=== PATIENT | male | born 1970 | race Caucasian/White ===

== ENCOUNTER 2018-12-27 17:41 | Emergency (ER) | payer MEDICAID ==
[~2018-12-27] VITALS: Ht 175.3 cm; Wt 92.5 kg
[2018-12-27 17:55] VITALS: BP 164/84
--- NOTE | 2018-12-27 18:00 | NUR ---
PT PLACED IN CHAIR E.
--- NOTE | 2018-12-27 18:01 | NUR ---
48/M presents to ED for a medication refill. Pt states he ran out of his medications for Lisinopril and Clonidine. Pt denies pain. Denies headache. VSS. Med hx: HTN
[2018-12-27 18:39] VITALS: BP 164/84
--- NOTE | 2018-12-27 18:39 | NUR ---
Patient discharged with v/s stable. Written and verbal after care instructions given and explained. Patient alert, oriented and verbalized understanding of instructions. Ambulatory with steady gait. All questions addressed prior to discharge. ID band removed. Patient advised to follow up with PMD. Rx of Lisinopril 20mg and Clonidine 0.1mg given. Patient educated on indication of medication including possible reaction and side effects. Opportunity to ask questions provided and answered.
== END 2018-12-27 18:39 | disposition home or self-care (01) ==
LOC: MED 17:41
DX: I10 Essential (primary) hypertension (principal); Z76.0 Encounter for issue of repeat prescription
CPT/HCPCS: 99283